=== PATIENT | male | born 1980 | race Caucasian/White ===

== ENCOUNTER 2019-12-05 07:38 | Observation (INO) ==
[2019-12-05] MEDS ORDERED: Ondansetron 4 MG/2 ML VIAL IVP PRN (10:08)
[2019-12-05] MEDS ORDERED: Naloxone 0.4 MG/ML INJ IVP PRN (10:08)
[2019-12-05 11:22] LABS: Adenovirus Not Detected (Not Detect); Bordetella Pertussis Not Detected (Not Detect); Chlamydophila pneumoniae Not Detected (Not Detect); Coronavirus 229E Not Detected (Not Detect); Coronavirus HKU1 Not Detected (Not Detect); Coronavirus NL63 Not Detected (Not Detect); Coronavirus OC43 Not Detected (Not Detect); Human Metapneumovirus Not Detected (Not Detect); Human Rhinovirus/Enterovirus Not Detected (Not Detect); Influenza A Subtype 2009 H1 Not Detected (Not Detect); Influenza B Not Detected (Not Detect); Mycoplasma pneumoniae Not Detected (Not Detect); Parainfluenza Virus 1 Not Detected (Not Detect); Parainfluenza Virus 2 Not Detected (Not Detect); Parainfluenza Virus 3 Not Detected (Not Detect); Parainfluenza Virus 4 Not Detected (Not Detect); Respiratory Syncytial Virus Not Detected (Not Detect)
[2019-12-05] MEDS ORDERED: Lidocaine -MPF 2% 2 ML VIAL ONE (15:36)
[2019-12-05] MEDS: Pantoprazole 40 MG VIAL IVP SCH (17:06)
[2019-12-05] MEDS: Ringers Solution, Lactated 1,000 ML IVC SCH (17:07)
[2019-12-05 17:21] LABS: Hemoglobin 11.9 g/dL (12.9-16.9)
[2019-12-06] MEDS ORDERED: Acetaminophen 325 MG TABLET PO ONE (03:48)
[2019-12-06 04:30] LABS: Basophils % 0.7 %
[2019-12-06 04:32] LABS: Eosinophils # 0.1 K/mcL (0.0-0.6); Eosinophils % 2.2 %; Hematocrit 29.4 % (37.5-50.1); Hemoglobin 10.3 g/dL (12.9-16.9); Immature Granulocytes % 0.4 % (0-4); Immature Platelets 11.1 % (1.1-6.1); Lymphocytes # 1.5 K/mcL (0.6-4.6); Lymphocytes % 33.7 %; Mean Corpuscular Volume 94.2 fL (83.0-100.0); Mean Platelet Volume 12.5 fL (9.4-12.4); Monocytes # 0.4 K/mcL (0.0-1.3); Monocytes % 8.4 %; Neutrophils # 2.5 K/mcL (1.6-8.9); Red Blood Count 3.12 M/mcL (4.19-5.50); Red Cell Distribution Width 14.5 % (11.5-14.5); Segmented Neutrophils % 54.6 %; White Blood Count 4.5 K/mcL (4.3-11.1)
[2019-12-06 04:46] LABS: Platelet Count 63 K/mcL (140-400)
[2019-12-06 04:52] LABS: Albumin 2.8 g/dL (3.5-5.7); BUN/Creatinine Ratio 19 (6-26); Bilirubin,Direct 0.4 mg/dL (0.0-0.2); Bilirubin,Indirect 1.4 mg/dL (0.0-1.0); Bilirubin,Total 1.8 mg/dL (0.3-1.0); Blood Urea Nitrogen 18 mg/dL (6-20); Calcium 8.3 mg/dL (8.6-10.3); Carbon Dioxide 23 mEq/L (23-29); Chloride 112 mEq/L (98-107); Globulin 2.8 g/dL (2.4-3.5); Glucose 86 mg/dL (70-105); Osmolality,Calculated 291 (280-300); Potassium 3.7 mEq/L (3.5-5.1); Sodium 140 mEq/L (136-145); Total Protein 5.6 g/dL (6.4-8.9); eGFR For African Americans > 60 (> 60); eGFR For Non-African Americans > 60 (> 60)
[2019-12-06] MEDS: Pantoprazole 40 MG VIAL IVP SCH (05:45)
[2019-12-06] MEDS: Ringers Solution, Lactated 1,000 ML IVC SCH (05:46)
[2019-12-06] MEDS ORDERED: Acetaminophen 325 MG TABLET PO PRN (09:22)
[2019-12-06 10:50] VITALS: BP 102/57
== END 2019-12-06 13:15 | disposition home or self-care (01) ==
LOC: CDU → 3BNU 12:46
PROVIDERS: ADMIT Internal Medicine; ATTEND Internal Medicine

== ENCOUNTER 2020-07-18 04:17 | Observation (INO) ==
[2020-07-18 05:53] VITALS: BP 114/71
[2020-07-18] MEDS ORDERED: Naloxone 0.4 MG/ML INJ IVP PRN (05:55)
[2020-07-18] MEDS ORDERED: Ondansetron 4 MG/2 ML VIAL IVP PRN (05:55)
== END 2020-07-18 06:42 | disposition left against medical advice (07) ==
LOC: 2ANU
PROVIDERS: ADMIT Internal Medicine; ATTEND Internal Medicine